=== PATIENT | male | born 1995 | race African-American/Black ===

== ENCOUNTER 2020-05-21 09:14 | Emergency (ER) | payer SELFPAY ==
[2020-05-21 13:39] LABS: SARS-CoV-2 PCR by NAA DETECTED (NotDetected)
== END 2020-05-21 09:55 | disposition home or self-care (01) ==
LOC: ERS 09:14
DX: U07.1 COVID-19 (principal)
CPT/HCPCS: 87635; 99283; U0003; U0005

== ENCOUNTER 2023-02-03 01:13 | Emergency (ER) | payer SELFPAY | END 2023-02-03 01:41 | disposition home or self-care (01) | LOC: ERS 01:13 | DX: J32.9 Chronic sinusitis, unspecified (principal); H10.9 Unspecified conjunctivitis | CPT/HCPCS: 99283 ==

== ENCOUNTER 2025-01-19 00:46 | Emergency (ER) | payer SELFPAY ==
[2025-01-19] MEDS ORDERED: Dexamethasone 10 MG/ML VIAL ONE (00:57)
[2025-01-19] MEDS ORDERED: Famotidine 20 MG TAB ONE (00:57)
== END 2025-01-19 01:55 | disposition home or self-care (01) ==
LOC: ERS 00:46
DX: R09.81 Nasal congestion (principal)
CPT/HCPCS: 99283; J1100